=== PATIENT | female | born 1970 | race Two or more races ===

== ENCOUNTER 2017-09-29 09:05 | Emergency (ER) | payer OTHER ==
[~2017-09-29] VITALS: Ht 162.6 cm; Wt 59.0 kg
[~2017-09-29 09:05] MED LIST: ALDACTONE 50 MG PO; CARdura PO; CATAPRES PO; Cozaar PO; Procardia Xl 30MG TAB PO
[2017-09-29] MEDS ORDERED: SPIRONOLACTONE100 MG PO (09:17)
[2017-09-29] MEDS ORDERED: DOXAZOSIN MESYLA4 MG PO (09:18)
[2017-09-29] MEDS ORDERED: CLONIDINE HCL0.3 MG PO (09:18)
[2017-09-29] MEDS ORDERED: IRBESARTAN300 MG PO (09:19)
[2017-09-29] MEDS ORDERED: PERCOCET 10-321 EACH PO (09:19)
[2017-09-29] MEDS ORDERED: TAMOXIFEN CITRA20 MG PO (09:20)
== END 2017-10-01 21:48 | disposition home or self-care (01) ==
LOC: ER 09:05
DX: B37.3 Candidiasis of vulva and vagina (principal); R20.2 Paresthesia of skin; E87.6 Hypokalemia

== ENCOUNTER 2018-01-05 07:48 | Outpatient (CLI) | payer OTHER ==
[~2018-01-05 07:48] MED LIST changes: +CLONIDINE HCL0.3 MG PO; +DOXAZOSIN MESYLA4 MG PO; +IRBESARTAN300 MG PO; +PERCOCET 10-321 EACH PO; +SPIRONOLACTONE100 MG PO; +TAMOXIFEN CITRA20 MG PO
== END 2018-01-05 07:55 | disposition home or self-care (01) ==
LOC: MAMO-SONO 07:48
DX: C50.911 Malignant neoplasm of unspecified site of right female breast (principal); C50.912 Malignant neoplasm of unspecified site of left female breast

== ENCOUNTER → 2018-01-05 09:01 | Outpatient (CLI) | payer OTHER | END | disposition home or self-care (01) | LOC: LAB 09:01 | DX: C50.911 Malignant neoplasm of unspecified site of right female breast (principal); C50.912 Malignant neoplasm of unspecified site of left female breast ==

== ENCOUNTER 2018-03-02 23:07 | Emergency (ER) | payer OTHER ==
[~2018-03-02] VITALS: Ht 157.5 cm; Wt 63.5 kg
[2018-03-03] MEDS ORDERED: NIFEDIPINE ER30 M1 PO (07:22)
== END 2018-03-03 07:34 | disposition home or self-care (01) ==
LOC: ER 23:07
DX: I16.0 Hypertensive urgency (principal); I10 Essential (primary) hypertension

== ENCOUNTER → 2018-04-06 | Outpatient (CLI) | payer OTHER ==
[~2018-04-06] MED LIST changes: +NIFEDIPINE ER30 M1 PO
== END | disposition home or self-care (01) ==
LOC: RAD 10:07
DX: Z01.818 Encounter for other preprocedural examination (principal)

== ENCOUNTER 2018-04-14 08:11 | Outpatient (CLI) | payer OTHER | END 2018-04-14 08:20 | disposition home or self-care (01) | LOC: LAB 08:11 | DX: E87.6 Hypokalemia (principal) ==

== ENCOUNTER 2018-04-14 09:09 | Day surgery (SDC) | payer OTHER | END 2018-04-14 20:35 | disposition home or self-care (01) | LOC: CIR.AMB 09:09 | DX: N65.1 Disproportion of reconstructed breast (principal); T85.44XA Capsular contracture of breast implant, initial encounter; Z90.12 Acquired absence of left breast and nipple ==

== ENCOUNTER 2018-07-10 11:11 | Outpatient (CLI) | payer OTHER | END 2018-07-10 13:00 | disposition home or self-care (01) | LOC: LAB 11:11 | DX: D50.8 Other iron deficiency anemias (principal) ==

== ENCOUNTER 2018-11-08 09:34 | Outpatient (CLI) | payer OTHER | END 2018-11-08 09:39 | disposition home or self-care (01) | LOC: LAB 09:34 | DX: I10 Essential (primary) hypertension (principal) ==

== ENCOUNTER → 2018-11-09 10:22 | Outpatient (CLI) | payer OTHER | END | disposition home or self-care (01) | LOC: LAB 10:22 | DX: I10 Essential (primary) hypertension (principal) ==

== ENCOUNTER → 2018-11-14 12:06 | Outpatient (CLI) | payer OTHER | END | disposition home or self-care (01) | LOC: LAB 12:06 | DX: D64.89 Other specified anemias (principal); Z12.11 Encounter for screening for malignant neoplasm of colon; E03.8 Other specified hypothyroidism; N95.1 Menopausal and female climacteric states; I10 Essential (primary) hypertension; C51.9 Malignant neoplasm of vulva, unspecified; N30.00 Acute cystitis without hematuria; E83.51 Hypocalcemia; A64 Unspecified sexually transmitted disease; N39.0 Urinary tract infection, site not specified; R97.8 Other abnormal tumor markers; R79.89 Other specified abnormal findings of blood chemistry ==

== ENCOUNTER 2018-11-28 07:26 | Outpatient (CLI) | payer OTHER | END 2018-11-28 07:34 | disposition home or self-care (01) | LOC: MRI 07:26 | DX: R10.0 Acute abdomen (principal); N60.29 Fibroadenosis of unspecified breast; C50.919 Malignant neoplasm of unspecified site of unspecified female breast; Z80.0 Family history of malignant neoplasm of digestive organs | CPT/HCPCS: 72196; 74182; A9575; 72197; 74183 ==

== ENCOUNTER 2018-12-11 06:00 | Day surgery (SDC) | payer OTHER | END 2018-12-11 10:35 | disposition home or self-care (01) | LOC: AMB-ENDOS 06:00 | DX: D12.5 Benign neoplasm of sigmoid colon (principal) ==

== ENCOUNTER → 2018-12-26 10:25 | Outpatient (CLI) | payer OTHER ==
[~2018-12-26 10:25] MED LIST changes: +LOSARTAN-HCTZ1 EAC1
== END | disposition home or self-care (01) ==
LOC: LAB 09:51
DX: C50.912 Malignant neoplasm of unspecified site of left female breast (principal); Z01.810 Encounter for preprocedural cardiovascular examination; Z01.812 Encounter for preprocedural laboratory examination

== ENCOUNTER 2019-01-10 18:14 | Inpatient (IN) | payer OTHER ==
[~2019-01-10] VITALS: Ht 154.9 cm; Wt 60.3 kg
[~2019-01-10 18:14] MED LIST changes: -LOSARTAN-HCTZ1 EAC1
[2019-01-10] MEDS ORDERED: LOSARTAN-HCTZ1 EAC1 (19:04)
[2019-01-17] MEDS ORDERED: CLONIDINE HCL0.2 MG PO (14:46)
[2019-01-17] MEDS ORDERED: ZOCOR20 MG PO (14:46)
[2019-01-17] MEDS ORDERED: SPIRONOLACTONE50 MG PO (14:46)
[2019-01-17] MEDS ORDERED: PROCARDIA XL90 MG PO (14:46)
[2019-01-17] MEDS ORDERED: AVAPRO300 MG PO (14:46)
[2019-01-17] MEDS ORDERED: CARdura 4MG TABLET PO (14:46)
== END 2019-01-17 15:48 | disposition home or self-care (01) | DRG 583 ==
LOC: ER 18:14 → ICU-2 21:48 → SURG 21:48 → SEC-K 01-14 09:27 → SURG 01-14 12:22
PROVIDERS: Plastic Surgery; ADMIT Internal Medicine
PROC: B246ZZZ Ultrasonography of Right and Left Heart (ICD-10-PCS; 2019-01-10)
PROC: BT43ZZZ Ultrasonography of Bilateral Kidneys (ICD-10-PCS; 2019-01-10)
PROC: 4A12X4Z Monitoring of Cardiac Electrical Activity, External Approach (ICD-10-PCS; 2019-01-14)
PROC: B34HZZZ Ultrasonography of Right Upper Extremity Arteries (ICD-10-PCS; 2019-01-14)
PROC: B54MZZZ Ultrasonography of Right Upper Extremity Veins (ICD-10-PCS; 2019-01-14)
PROC: B43 Imaging, Lower Arteries, Magnetic Resonance Imaging (MRI) (ICD-10-PCS; 2019-01-14)
PROC: 0HQT0ZZ Repair Right Breast, Open Approach (ICD-10-PCS; 2019-01-15)
PROC: 0HRT0JZ Replacement of Right Breast with Synthetic Substitute, Open Approach (ICD-10-PCS; principal; 2019-01-15 12:00)
DX: T85.44XA Capsular contracture of breast implant, initial encounter (principal); D05.12 Intraductal carcinoma in situ of left breast; N65.1 Disproportion of reconstructed breast; Z90.12 Acquired absence of left breast and nipple; I16.0 Hypertensive urgency; I10 Essential (primary) hypertension; E87.6 Hypokalemia; E26.89 Other hyperaldosteronism; Z85.3 Personal history of malignant neoplasm of breast; M70.31 Other bursitis of elbow, right elbow; E26.9 Hyperaldosteronism, unspecified; D44.10 Neoplasm of uncertain behavior of unspecified adrenal gland; B37.3 Candidiasis of vulva and vagina
CPT/HCPCS: 74185

== ENCOUNTER 2019-09-19 08:25 | Outpatient (CLI) | payer OTHER ==
[~2019-09-19 08:25] MED LIST changes: +AVAPRO300 MG PO; +CARdura 4MG TABLET PO; +CLONIDINE HCL0.2 MG PO; +LOSARTAN-HCTZ1 EAC1; +PROCARDIA XL90 MG PO; +SPIRONOLACTONE50 MG PO; +ZOCOR20 MG PO
== END 2019-09-19 08:26 | disposition home or self-care (01) ==
LOC: MAMO-SONO 08:25
DX: Z12.31 Encounter for screening mammogram for malignant neoplasm of breast (principal); Z87.898 Personal history of other specified conditions; C50.919 Malignant neoplasm of unspecified site of unspecified female breast

== ENCOUNTER 2019-09-27 13:23 | Inpatient (IN) | payer OTHER ==
[~2019-09-27] VITALS: Ht 154.9 cm; Wt 61.2 kg
[2019-09-28] MEDS ORDERED: DOXAZOSIN MESYLA8 MG PO (10:34)
[2019-09-28] MEDS ORDERED: CLONIDINE HCL0.1 MG PO (10:36)
== END 2019-10-02 12:55 | disposition designated cancer center or children's hospital (05) | DRG 282 ==
LOC: ER 13:23 → ICU-2 23:13 → ICU 09-29 06:09
PROVIDERS: ADMIT Internal Medicine; ATTEND Internal Medicine
PROC: B24BZZZ Ultrasonography of Heart with Aorta (ICD-10-PCS; principal; 2019-09-27)
DX: I21.4 Non-ST elevation (NSTEMI) myocardial infarction (principal); I16.0 Hypertensive urgency; I10 Essential (primary) hypertension; E78.49 Other hyperlipidemia; R07.89 Other chest pain; E87.6 Hypokalemia; I08.1 Rheumatic disorders of both mitral and tricuspid valves; I80.8 Phlebitis and thrombophlebitis of other sites; R50.9 Fever, unspecified; R19.7 Diarrhea, unspecified; Z03.818 Encounter for observation for suspected exposure to other biological agents ruled out

== ENCOUNTER 2020-12-12 11:25 | Outpatient (CLI) | payer OTHER ==
[~2020-12-12 11:25] MED LIST changes: +CLONIDINE HCL0.1 MG PO; +DOXAZOSIN MESYLA8 MG PO
== END 2020-12-12 11:26 | disposition home or self-care (01) ==
LOC: LAB 11:25
PROVIDERS: ATTEND Obstetrics & Gynecology
DX: E83.51 Hypocalcemia (principal); A64 Unspecified sexually transmitted disease; R97.8 Other abnormal tumor markers; B00.89 Other herpesviral infection

== ENCOUNTER 2021-01-01 09:11 | Outpatient (CLI) | payer OTHER | END 2021-01-01 09:16 | disposition home or self-care (01) | LOC: MAMO-SONO 09:11 → MRI 09:45 | PROVIDERS: ATTEND Internal Medicine | DX: R10.2 Pelvic and perineal pain (principal); D64.89 Other specified anemias; N93.8 Other specified abnormal uterine and vaginal bleeding; N64.4 Mastodynia; Z12.31 Encounter for screening mammogram for malignant neoplasm of breast | CPT/HCPCS: 72197; 76641; 76856; 77067; Q9965 ==

== ENCOUNTER 2021-01-16 07:23 | Outpatient (CLI) | payer OTHER | END 2021-01-16 07:34 | disposition home or self-care (01) | LOC: TOM 07:23 | DX: I25.10 Atherosclerotic heart disease of native coronary artery without angina pectoris (principal); R07.89 Other chest pain; C34.2 Malignant neoplasm of middle lobe, bronchus or lung ==

== ENCOUNTER 2021-01-16 08:45 | Outpatient (CLI) | payer OTHER | END 2021-01-16 08:46 | disposition home or self-care (01) | LOC: NUCLEAR 08:45 | PROVIDERS: ATTEND Internal Medicine | DX: M81.0 Age-related osteoporosis without current pathological fracture (principal) ==

== ENCOUNTER → 2021-02-24 08:42 | Outpatient (CLI) | payer OTHER ==
[~2021-02-24 08:42] MED LIST changes: +ASA81 MG PO; +GABAPEN PO; +LASIX40 MG PO; +PERCOCET PO; +ZESTRIL40 M1 PO; +[UNRECOGNIZED DRUG - OTHER] PO
== END | disposition home or self-care (01) ==
LOC: LAB 08:42
PROVIDERS: ATTEND Plastic Surgery
DX: I10 Essential (primary) hypertension (principal); R94.31 Abnormal electrocardiogram [ECG] [EKG]; C50.911 Malignant neoplasm of unspecified site of right female breast

== ENCOUNTER 2021-03-06 05:55 | Day surgery (SDC) | payer OTHER | END 2021-03-06 13:35 | disposition home or self-care (01) | LOC: CIR.AMB 05:55 | PROVIDERS: ATTEND Plastic Surgery | DX: C50.812 Malignant neoplasm of overlapping sites of left female breast (principal); Z53.09 Procedure and treatment not carried out because of other contraindication; I10 Essential (primary) hypertension; Z90.12 Acquired absence of left breast and nipple ==

== ENCOUNTER 2021-06-01 00:16 | Emergency (ER) | payer OTHER ==
[~2021-06-01] VITALS: Ht 154.9 cm; Wt 62.1 kg
[2021-06-01] MEDS ORDERED: NEURONTIN300 MG PO (00:34)
[2021-06-01] MEDS ORDERED: FLUCONAZOLE100 MG PO (01:52)
== END 2021-06-01 01:57 | disposition home or self-care (01) ==
LOC: ER 00:16
DX: N76.0 Acute vaginitis (principal)

== ENCOUNTER 2021-09-17 08:12 | Outpatient (CLI) | payer OTHER ==
[~2021-09-17 08:12] MED LIST changes: +FLUCONAZOLE100 MG PO; +NEURONTIN300 MG PO
== END 2021-09-17 15:31 | disposition home or self-care (01) ==
LOC: LAB 08:12
PROVIDERS: ATTEND Internal Medicine
DX: Z12.11 Encounter for screening for malignant neoplasm of colon (principal); I10 Essential (primary) hypertension; E78.9 Disorder of lipoprotein metabolism, unspecified; E03.9 Hypothyroidism, unspecified; R73.09 Other abnormal glucose; E55.9 Vitamin D deficiency, unspecified; N39.0 Urinary tract infection, site not specified; D69.8 Other specified hemorrhagic conditions; D50.8 Other iron deficiency anemias

== ENCOUNTER 2021-09-30 10:56 | Outpatient (CLI) | payer OTHER | END 2021-09-30 11:02 | disposition home or self-care (01) | LOC: RAD 10:56 | PROVIDERS: ATTEND Plastic Surgery | DX: C50.912 Malignant neoplasm of unspecified site of left female breast (principal) ==

== ENCOUNTER 2021-10-02 05:30 | Day surgery (SDC) | payer OTHER ==
[~2021-10-02] VITALS: Ht 157.5 cm; Wt 61.2 kg
== END 2021-10-02 19:05 | disposition home or self-care (01) ==
LOC: CIR.AMB 05:30
PROVIDERS: ATTEND Plastic Surgery
DX: T85.44XA Capsular contracture of breast implant, initial encounter (principal); Z20.822 Contact with and (suspected) exposure to COVID-19; Z88.0 Allergy status to penicillin; I10 Essential (primary) hypertension; I25.2 Old myocardial infarction; K21.9 Gastro-esophageal reflux disease without esophagitis; Z95.5 Presence of coronary angioplasty implant and graft; Z79.82 Long term (current) use of aspirin
CPT/HCPCS: 19342; 19371; L8600